=== PATIENT | male | born 1930 | race Caucasian/White ===

== ENCOUNTER 2021-01-27 13:44 | Observation (INO) | payer MEDICARE ==
[~2021-01-27] VITALS: Ht 170.2 cm; Wt 53.0 kg
[~2021-01-27 13:44] MED LIST: CIPRO XR500 MG PO; GLYBURIDE2.5 MG PO; METFORMIN1000 MG PO; MILK OF MAG30 ML/UDC PO; NO HOME MEDS
--- NOTE | 2021-01-27 13:44 | NUR ---
PREHOSPITAL ACCUCHECK 398
--- NOTE | 2021-01-27 13:44 | NUR ---
TO ROOM VIA STRETCHER WITH EMS IN STABLE CONDITION, ALERT, ORIENTED TO PERSON ONLY
[2021-01-27 14:24] LABS: HEMATOCRIT 40.2 % (39.0-50.0); HEMOGLOBIN 12.9 g/dl (14.0-18.0); IMMATURE GRANULOCYTES 1.1 % (0.0-5.0); MEAN CELL VOLUME 94.8 fL CALC (80.0-100.0); MEAN CORPUSCULAR HGB 30.4 pG CALC (26.0-32.0); MEAN CORPUSCULAR HGB CONC 32.1 g/dL CAL (32.0-36.0); NEUT# 6.43 thou/uL (1.82-7.42); RED BLOOD COUNT 4.24 mill/uL (4.70-6.10); RED CELL DISTRI WIDTH 12.3 % (11.5-15.5)
[2021-01-27 14:37] LABS: ALBUMIN 4.3 g/dL (3.2-5.0); ALKALINE PHOSPHATASE 82 u/l (38-126); CARBON DIOXIDE 22 mmol/l (22-30); CREATININE 1.4 mg/dL (0.7-1.3); ETHYL ALCOHOL 0 mg/dl (0-30); GFR 48 ML/MIN (>=60 (CALC)); GFR FOR AFR.AMER. 58 ML/MIN (>=60 (CALC)); LIPASE 515 u/l (23-300); MAGNESIUM 2.3 mg/dL (1.6-2.3); POTASSIUM 4.3 mmol/l (3.5-5.1); SGOT/AST 21 u/l (19-48)
[2021-01-27 14:38] LABS: ACT PARTIAL THROMBO TIME 18.7 SECONDS (20.0-32.5); PROTHROMBIN TIME 10.6 SECONDS (9.0-12.5)
[2021-01-27 14:46] LABS: ANION GAP 18 (6-22 (CALC)); BILIRUBIN, TOTAL 0.5 mg/dL (0.0-1.4); BUN 42 mg/dL (8-23); BUN/CREATININE RATIO 30 (12-20 (CALC)); CHLORIDE 111 mmol/l (95-108); SODIUM 147 mmol/l (137-146)
[2021-01-27 14:51] LABS: URINE BILIRUBIN - DIPSTICK NEGATIVE (NEGATIVE); URINE BLOOD DIPSTICK TRACE-INTACT (NEGATIVE); URINE COLOR YELLOW; URINE GLUCOSE - DIPSTICK >=1000 mg/dL (NEGATIVE); URINE KETONE 15 mg/dL (NEGATIVE); URINE LEUK ESTERASE NEGATIVE (NEGATIVE); URINE PROTEIN - DIPSTICK TRACE mg/dL (NEG-TRACE); URINE SPECIFIC GRAVITY 1.025; URINE UROBILINOGEN - DIPSTICK 0.2 E.U./dL (0.2)
[2021-01-27 14:52] LABS: URINE NITRITE - DIPSTICK NEGATIVE (Negative)
[2021-01-27 15:07] LABS: TSH, 3RD GENERATION 1.94 uIU/mL (0.47 - 4.68)
--- NOTE | 2021-01-27 15:24 | NUR ---
PT RETURNED TO ROOM [address] VIA STRETCHER IN STABLE CONDITION. ADVISED OF WAIT TIME FOR TEST RESULTS. EKG OBTAINED ORDERED.
--- NOTE | 2021-01-27 15:37 | NUR ---
MD AT BEDSIDE DISCUSSING POC FOR ADMISSION TO MONITOR OVERNIGHT. CAREGIVER AT BEDSIDE.
--- NOTE | 2021-01-27 16:45 | NUR ---
PO FLUIDS TAKEN WITHOUT DIFFICULTY. IV SITE HEALTHY. CAREGIVER/PT AWARE OF PENDING ADMIT.
--- NOTE | 2021-01-27 16:59 | NUR ---
REPORT RECEIVED FROM MAUREEN ZABALA
--- NOTE | 2021-01-27 17:15 | NUR ---
PT TO MEDSURG VIA STRETCHER IN STABLE CONDITION. IV SITE HEALHTY. REPORT PROVIDED TO MAUREEN EARL.
--- NOTE | 2021-01-27 17:19 | NUR ---
PT ARRIVED TO MED/SURG ROOM 270 IN STABLE CONDITION VIA STRETCHER ACCOMPANIED BY MAUREEN ZABALA;PT ASSISTED TO BEDSIDE WITH X2 ASSIST;PT ALERT TO PERSON ONLY, FREQUENT RE-ORIENTING REQUIRED;PT ALSO NOTED TO BE VERY POOR HISTORIAN AND [place]ICKAPOO OF [place];ROOM AND CALL LIGHT SYSTEM EDUCATED;PER VJRN PT CAREGIVER CALLED EMS DUE TO PT ACTING "OFF" AND BEING UNABLE TO STAND;WT AND VS OBTAINED BY KENY GLOVER;ASSESSMENT COMPLETED;PT DENIES ANY CURRENT PAIN OR DISCOMFORTS,PAIN SCALE AND REPORTING EDUCATED;RESPIRATIONS EVEN AND UNLABORED ON RA,CLEAR LUNG SOUNDS;ABDOMEN SOFT ON PALPATION AND ACTIVE IN ALL 4 QUADRANTS, LAST BM UNKNOWN;WEAK PEDAL PULSES;SKIN INTACT;TELE MONITORING IN PLACE;EMS #2OG TO LAC FLUSHED AND PATENT,NS STARTED @ 100ML/HR;ACCUCHECK 334, PT COVERED WITH SLIDING SCALE INSULIN PER ORDER;FALL AND ALLERGY BAND APPLIED TO RIGHT ARM;MEAL TRAY PROVIDED;PT DENIES ANY ADDITIONAL NEEDS AND IS ENCOURAGED TO CALL FOR ASSISTANCE IF NEEDED;FALL PRECAUTIONS IN PLACE WITH BED IN THE LOWEST POSITION AND BED ALARM ON FOR SAFETY;CALL LIGHT IN REACH;WILL CONTINUE TO MONITOR
[2021-01-27 17:27] VITALS: BP 161/74
[2021-01-27 18:42] VITALS: BP 136/64
--- NOTE | 2021-01-27 21:30 | NUR ---
RECEIVED PT FROM DAY SHIFT NURSE. PT ORIENTED TO PERSON, ALERT AND AWAKE, REFUSED PAIN AT THIS TIME, ORIENTED ABOUT SAFETY PRECAUTIONS, FALLS PRECAUTIOSN ANS PLAN OF CARE.
[2021-01-27 23:41] VITALS: BP 124/62
--- NOTE | 2021-01-28 00:10 | NUR ---
HOURLY ROUNDING. PT OBSERVED CALM AND SLEEP. VITAL ARE STABLE. NOTIFIED CONTACT EMERGENCY ([facility]) ABOUT UP DATES BY PHONE. RE-EDUCATED PT TO FALLS AND SAFETY PRECAUTIONS.
[2021-01-28 04:00] VITALS: BP 116/67
--- NOTE | 2021-01-28 04:16 | NUR ---
HOURLY ROUNDING. PT OBSERVED SLEEP AND CALM. VITALS ARE STABLE. RE-EDUCATED ABOUT FALLS AND SAFETY PRECAUTIONS.
[2021-01-28 06:45] LABS: ANION GAP 10 (6-22 (CALC)); BUN/CREATININE RATIO 30 (12-20 (CALC)); CARBON DIOXIDE 26 mmol/l (22-30); CHLORIDE 108 mmol/l (95-108); CREATININE 0.6 mg/dL (0.7-1.3); GFR > 60 ML/MIN (>=60 (CALC)); GFR FOR AFR.AMER. > 60 ML/MIN (>=60 (CALC)); MAGNESIUM 1.9 mg/dL (1.6-2.3); POTASSIUM 3.9 mmol/l (3.5-5.1); SODIUM 140 mmol/l (137-146)
[2021-01-28 07:07] LABS: HEMATOCRIT 36.5 % (39.0-50.0); HEMOGLOBIN 11.5 g/dl (14.0-18.0); MEAN CELL VOLUME 97.9 fL CALC (80.0-100.0); MEAN CORPUSCULAR HGB 30.8 pG CALC (26.0-32.0); MEAN CORPUSCULAR HGB CONC 31.5 g/dL CAL (32.0-36.0); RED BLOOD COUNT 3.73 mill/uL (4.70-6.10); RED CELL DISTRI WIDTH 12.4 % (11.5-15.5)
--- NOTE | 2021-01-28 07:10 | NUR ---
REPORT RECEIVED FROM MAUREEN MATHIS
[2021-01-28 07:12] LABS: BUN 18 mg/dL (8-23)
[2021-01-28 07:29] LABS: CHOLESTEROL HDL RATIO 6.4 (<4.4 (CALC))
--- NOTE | 2021-01-28 07:40 | NUR ---
PT RESTING IN SEMI FOWLERS POSITION,A&O TO PERSON AND PLACE;IT ALSO SHOULD BE NOTED THAT THE PT IS VERY HARD OF HEARING;VS OBTAINED AND ASSESSMENT;PT DENIES ANY CURRENT PAIN OR DISCOMFORTS,PAIN SCALE AND REPORTING EDUCATED;RESPIRATIONS EVEN AND UNLABORED ON RA,CLEAR LUNG SOUNDS;ABDOMEN SOFT ON PALPATION AND ACTIVE IN ALL 4 QUADRANTS;WEAK PEDAL PULSES;SKIN INTACT;TELE MONITORING IN PLACE;EMS #20G TO LAC INFUSING NS @ 100ML/HR,SITE APPEARS HEALTHY;ACCUCHECK 199, PT COVERED WITH SLIDING SCALE INSULIN PER ORDER;PT DENIES ANY ADDITIONAL NEEDS AND IS ENCOURAGED TO CALL FOR ASSISTANCE IF NEEDED;FALL PRECAUTIONS IN PLACE WITH BED IN THE LOWEST POSITION AND BED ALARM ON FOR SAFETY;CALL LIGHT IN REACH;WILL CONTINUE TO MONITOR
[2021-01-28 07:41] VITALS: BP 119/61
--- NOTE | 2021-01-28 09:26 | NUR ---
AT BEDSIDE DISCUSSING POC WITH PT.
[2021-01-28 10:58] VITALS: BP 120/56
--- NOTE | 2021-01-28 11:35 | NUR ---
PT RESTING IN SEMI FOWLERS POSITION WATCHING TV;RESPIRATIONS EVEN AND UNLABORED ON RA;PT DENIES ANY CURRENT PAIN OR DISCOMFORTS;TELE MONITORING IN PLACE;IV SITE PATENT INFUSING NS WITH EASE PER ORDER;ACCUCHECK 238, PT COVERED WITH SLIDING SCALE INSULIN PER ORDER;PT DENIES ANY ADDITIONAL NEEDS AND IS ENCOURAGED TO CALL FOR ASSISTANCE IF NEEDED;FALL PRECAUTIONS REMAIN IN PLACE WITH BED IN THE LOWEST POSITION AND BED ALARM ON FOR SAFETY;CALL LIGHT IN REACH;WILL CONTINUE TO MONITOR
--- NOTE | 2021-01-28 11:37 | NUR ---
PHYSICAL THERAPY AT BEDSIDE WORKING WITH PT.
--- NOTE | 2021-01-28 13:43 | NUR ---
PT REMOVED IV SITE WITH CATHETER INTACT. NEW #22G STARTED TO ALEJANDRA BY MAUREEN PATEL.PT TOLERATED WELL.
[2021-01-28 15:22] VITALS: BP 113/56
--- NOTE | 2021-01-28 15:35 | NUR ---
PT AGITATED, ATTEMPTING TO GET OUT OF BED.UNCOOPERATIVE.VISUAL TREMORS ALSO NOTED. PT ASSISTED TO WC AND BROUGHT TO NURSES STATION FOR BETTER OBSERVATION; NOTIFIED OF INCREASED AGITATION,AWAITING NEW ORDERS;WRITTER TO REMAIN WITH PT AT THIS TIME;TELE MONITORING IN PLACE;IV SITE PATENT;ALL SAFETY PRECAUTIONS REMAIN IN PLACE;WILL CONTINUE TO MONITOR
--- NOTE | 2021-01-28 16:25 | NUR ---
PT MEDICATED WITH 10MG IM INJECTION TO RIGHT THIGH OF ZYPREXA BY MAUREEN PATEL PER ORDERS.WILL CONTINUE TO MONITOR
[2021-01-28 18:30] VITALS: BP 129/65
--- NOTE | 2021-01-28 19:00 | NUR ---
PT RESTING IN SEMI FOWLERS POSITION WITH WRITTER AT BEDSIDE. ATTEMPTING TO HIT/KICK WRITTER AND UNCOOPERATIVE WITH STAFF MEMBERS.ATTEMPTING TO GET OUT OF BED, PULL IV OUT AND YELL AT STAFF.MULTIPLE ENVIORMENTAL CHANGES MADE TO DISTRACT PATIENT;CALL PLACED TO BY MAUREEN PATEL AND ORDER FOR SOFT WRIST RESTRAINTS OBTAINED.WRIST RESTRAINTS APPLIED; SITTER TO REMAIN AT BEDSIDE.WILL CONTINUE TO MONITOR
--- NOTE | 2021-01-28 19:08 | NUR ---
CALL PLACED TO SON. VOICEMAIL LEFT AT THIS TIME,AWAITING CALL BACK.
--- NOTE | 2021-01-28 21:00 | NUR ---
PATIENT IS AWAKE IN BED ATTEMPTING TO GET OUT OF B/L SOFT RESTRAINTS TO WRISTS. CIRCULATION CHECKED AND GOOD. SON RETURNED CALL TO HOSPITAL AT 1945 AND WAS INFORMED THAT PATIENT IS NOW IN SOFT RESTRAINTS FOR SAFETY. ASSESSMENT COMPLETED AND CHARTED. SITTER AT BEDSIDE. BED ALARM ON/ACTIVATED.
[2021-01-28 23:21] VITALS: BP 129/68
--- NOTE | 2021-01-29 03:20 | NUR ---
PATIENT STILL AWAKE TRYING TO GET OOB, ASKING FOR A KNIFE, KICKING AT SHEARING SUPERVISOR DURING CARES. BED IN LOW POSITION. CALL LIGHT WITHIN REACH. BED ALARM ON/ACTIVATED, SOFT RESTRAINTS TO B/L WRISTS. CIRCULATIONS GOOD. SITTER AT BEDSIDE.
[2021-01-29 04:00] VITALS: BP 136/56
--- NOTE | 2021-01-29 05:01 | NUR ---
PATIENT CONTINUES TO BE COMBATIVE. PULLED OFF TELEMETRY. THIS NURSE ASSISTED ANIMAL ATTENDANT X2 WITH PATIENT REPOSITION, DIAPER CHANGE, BED LINEN CHANGE AND REAPPLICATION OF TELEMETRY. PATIENT TRIED TO HIT AND BITE WHILE DOING CARE. SITTER AT BEDSIDE. BED IN LOW POSITION, CALL LIGHT WITHIN REACH, BED ALARM ON/ACTIVATED.
[2021-01-29 05:13] LABS: HEMATOCRIT 36.7 % (39.0-50.0); HEMOGLOBIN 11.7 g/dl (14.0-18.0); MEAN CELL VOLUME 95.8 fL CALC (80.0-100.0); MEAN CORPUSCULAR HGB 30.5 pG CALC (26.0-32.0); MEAN CORPUSCULAR HGB CONC 31.9 g/dL CAL (32.0-36.0); RED BLOOD COUNT 3.83 mill/uL (4.70-6.10); RED CELL DISTRI WIDTH 12.1 % (11.5-15.5)
[2021-01-29 05:33] LABS: BUN 35 mg/dL (8-23); BUN/CREATININE RATIO 33 (12-20 (CALC)); CHLORIDE 112 mmol/l (95-108); GFR > 60 ML/MIN (>=60 (CALC)); GFR FOR AFR.AMER. > 60 ML/MIN (>=60 (CALC)); POTASSIUM 3.9 mmol/l (3.5-5.1); SODIUM 142 mmol/l (137-146)
[2021-01-29 05:37] LABS: ANION GAP 14 (6-22 (CALC)); CARBON DIOXIDE 20 mmol/l (22-30)
--- NOTE | 2021-01-29 07:05 | NUR ---
REPORT RECEIVED FROM MAUREEN WINSLOW
[2021-01-29 08:34] VITALS: BP 132/56
--- NOTE | 2021-01-29 08:35 | NUR ---
PT APPEARS TO BE SLEEPING IN SUPINE POSITION,WAKES TO VERBAL STIMULI BUT REMAINS CONFUSED;VS OBTAINED AND ASSESSMENT COMPLETED;PT DENIES ANY CURRENT PAIN OR DISCOMFORTS;RESPIRATIONS EVEN AND UNLABORED ON RA,CLEAR LUNG SOUNDS;ABDOMEN SOFT ON PALPATION AND ACTIVE IN ALL 4 QUADRANTS;STRONG PEDAL PULSES;SKIN INTACT;#22G TO SIENNA INFUSING NS @ 100ML/HR,SITE APPEARS HEALTHY;TELE MONITORING IN PLACE;SOFT BILATERAL WRIST RESTRAINTS IN PLACE. GOOD CAP REFILL NOTED AND CIRCULATION;ACCUCHECK 155, PT COVERED WITH SLIDING SCALE INSULIN PER ORDER;ALL SAFETY PRECAUTIONS REMAIN IN PLACE WITH BED IN THE LOWEST POSITION,BED ALARM ON FOR SAFETY, AND SITTER AT BEDSIDE;CALL LIGHT IN REACH;WILL CONTINUE TO MONITOR
--- NOTE | 2021-01-29 09:37 | NUR ---
AT BEDSIDE DISCUSSING POC WITH PT.
[2021-01-29 10:53] VITALS: BP 113/50
--- NOTE | 2021-01-29 11:10 | NUR ---
PT APPEARS TO BE SLEEPING IN SUPINE POSITION;RESPIRATIONS EVEN AND UNLABORED ON RA;NO S/S OF DISTRESS NOTED;TELE MONITORING IN PLACE;SOFT WRIST RESTRAINTS REMAIN PATENT WITH GOOD CAP REFILL NOTED;#22G TO SIENNA INFUSING NS @ 100ML/HR;ACCUCHECK 136, NO COVERAGE NEEDED;ALL SAFETY PRECAUTIONS IN PLACE WITH BED IN THE LOWEST POSITION,BED ALARM ON FOR SAFETY, AND SITTER AT BEDSIDE;CALL LIGHT IN REACH;WILL CONTINUE TO MONITOR
--- NOTE | 2021-01-29 13:45 | NUR ---
PT COOPERATIVE WITH STAFF MEMBERS, REMAINS DROWSY AND CONFUSED BUT FOLLOWS COMMANDS APPROPRIATELY;BILATERAL SOFT WRIST RESTRAINTS REMOVED AT THIS TIME.ALL SAFETY PRECAUTIONS REMAIN IN PLACE INCLUDING BED IN THE LOWEST POSITION AND SITTER AT BEDSIDE;CALL LIGHT IN REACH;WILL CONTINUE TO MONITOR
--- NOTE | 2021-01-29 13:45 | NUR ---
PT VOMITED 100CC OF BROWN/CLEAR FLUID;CALL PLACED TO AND NEW ORDERS FOR PRN ZOFRAN AND STAT EKG OBTAINED;WILL CONTINUE TO MONITOR
--- NOTE | 2021-01-29 14:11 | NUR ---
RT AT BEDSIDE OBTAINING EKG.
--- NOTE | 2021-01-29 14:26 | NUR ---
PT OOB RESTING IN RECLINER WITH SITTER AT BEDSIDE;RESPIRATIONS EVEN AND UNLABORED ON RA;PT DENIES ANY CURRENT PAIN;PT MEDICATED WITH PRN ZOFRAN 4MG IVP AT THIS TIME FOR NAUSEA;TELE MONITORING IN PLACE;IV SITE PATENT;FALL PRECAUTIONS IN PLACE WITH CALL LIGHT IN REACH;WILL CONTINUE TO MONITOR
[2021-01-29 15:04] VITALS: BP 114/54
--- NOTE | 2021-01-29 15:30 | NUR ---
PT OOB SLEEPING IN RECLINER;RESPIRATIONS EVEN AND UNLABORED ON RA;NO S/S OF DISTRESS NOTED;TELE MONITORING IN PLACE;IV SITE PATENT INFUSING NS WITH EASE PER ORDER;ALL SAFETY PRECAUTIONS REMAIN IN PLACE WITH SITTER AT BEDSIDE AND CALL LIGHT IN REACH;WILL CONTINUE TO MONITOR
--- NOTE | 2021-01-29 18:45 | NUR ---
HOUSEKEEPING ROOM ATTENDANT AT BEDSIDE OF PT. HE APPEARS CALM AT THIS TIME. I REPLACED DARCIE WHO HAS BEEN SITTING WITH PT. TV ON AND LIGHTS ON LOW. NO S/O DISTRESS. I OFFERED HIM PO FLUIDS/RESPONDED APPROPRIATELY. PT IS TALKING BUT SPEECH IS LOW AND SLIGHTLY GARBLED, DIFFICULT FOR HOUSEKEEPING ROOM ATTENDANT TO UNDERSTAND. NO RESTRAINTS AT THIS TIME. PT IS CALMLY IN BED IN HIGH FOWLERS POSITION. IVF RUNNING TO SITE TO LEFT ARM/APPEARS HEALTHY AT THIS TIME.
[2021-01-29 19:00] VITALS: BP 151/55
--- NOTE | 2021-01-29 20:27 | NUR ---
PATIENT AWAKE AND CONFUSED WITH SITTER AT BEDSIDE. UP TO BSC WITH ASSIST. IVF INFUSING ORDERED. PATIENT PARTIALLY URINATED ON THE FLOOR. ON TELEMETRY. NOT BLATANTLY COMBATIVE AT THIS TIME. ASSESSMENT COMPLETED AND CHARTED. FALL PRECAUTIONS IN PLACE. BED ALARM ACTIVE.
--- NOTE | 2021-01-29 20:30 | NUR ---
PT STARTED TRYING TO CLIMB OUT OF THE BED. I ASSISTED HIM TO THE SIDE OF THE BED TO STAND, HE IS ATTEMPTING TO USE THE URINAL. REFUSES ASSISTANCE SAYING "LET ME DO IT" HE IS VERY WEAK AND UNSTABLE STANDING. WE ATTEMPTED HIM TO BS NEXT TO THE BED WITH 200CC OF DARK YELLOW URINE OUTPUT. PT AGREED TO RETURN TO THE BED WITH LITTLE STANDBY ASSISTANCE. HE REMAINS FAIRLY CALM AT THIS TIME. REFUSES MUCH ASSISTANCE, BUT DID NOT BECOME COMBATIVE AT THIS TIME. BED ALARM ON AND SITTER/CHANGE OVER REMAINING AT BS.
--- NOTE | 2021-01-29 23:36 | NUR ---
Pt was sleeping. Attempts to obtain v/s were made. Scraper Burrer was able to obtain hr, oxygen sat level, resp and temp. Pt appears stable at this time. He would not allow BP assessment at this time. He jerked away and hit at me for attempts of bp assess. and when I attempted to obtain B/P via lower extremety and he began to kick at me. He remains calm with comfort care, drink, positioning and blankets. Becomes agitated with further attempts of care. Will follow-up again for BP assessment attempts.
--- NOTE | 2021-01-30 00:33 | NUR ---
RESTING SIDELYING POSITION. EYES CLOSED. SITTER AT BEDSIDE FOR SAFETY. BED ALARM ON. BED IN LOW POSITION. CALL LIGHT WITHIN REACH.
--- NOTE | 2021-01-30 03:00 | NUR ---
Pt is laying on his side in bed w/covers on, sleeping. Resp even and non-labored. hall monitor is in place. Bed alarm is on. Dye Room Helper sitting at bedside for safety precautions.
[2021-01-30 04:25] VITALS: BP 152/80
--- NOTE | 2021-01-30 04:25 | NUR ---
Labs were drawn and v/s assessed at this time. He tolerated well and was cooperative without issue. Pt remained calm and appears to be returning to sleep.
[2021-01-30 05:29] LABS: HEMATOCRIT 32.5 % (39.0-50.0); HEMOGLOBIN 10.7 g/dl (14.0-18.0); MEAN CELL VOLUME 94.2 fL CALC (80.0-100.0); MEAN CORPUSCULAR HGB CONC 32.9 g/dL CAL (32.0-36.0); RED BLOOD COUNT 3.45 mill/uL (4.70-6.10); RED CELL DISTRI WIDTH 12.1 % (11.5-15.5)
[2021-01-30 05:42] LABS: ANION GAP 7 (6-22 (CALC)); BUN 20 mg/dL (8-23); BUN/CREATININE RATIO 24 (12-20 (CALC)); CARBON DIOXIDE 22 mmol/l (22-30); CHLORIDE 111 mmol/l (95-108); CREATININE 0.9 mg/dL (0.7-1.3); GFR > 60 ML/MIN (>=60 (CALC)); GFR FOR AFR.AMER. > 60 ML/MIN (>=60 (CALC)); POTASSIUM 3.4 mmol/l (3.5-5.1); SODIUM 137 mmol/l (137-146)
[2021-01-30 08:00] VITALS: BP 145/66
--- NOTE | 2021-01-30 08:00 | NUR ---
OUT OF THE BED TO THE BSC WITH 1 ASST. IV INFUSING. NOTED PT [place]AK[place]. REPOSITIOEND TO PLACE AND TIME, SITUATION. PT HAD A LARGE STOOL. BACK TO BED WITH ASST. NO DISTRESS NOTED AT THIS TIME. PT HAS A SITTER AT THE BEDSIDE. REPOSITIOEND FOR COMFORT, SIDE RAILS UP CALL LIGHT IN REACH BED LOCKED IN LOW POSITION, WILL CONTINUE TO MONIOTR THE PATIENT.
--- NOTE | 2021-01-30 10:00 | NUR ---
PT RESTING COMFORTABLE , EYES CLOSED. SITTER AT THE BEDSIDE NO DISTRESS NOTED AT THIS TIME.
[2021-01-30 11:30] VITALS: BP 121/63
--- NOTE | 2021-01-30 12:00 | NUR ---
PT SITTING UP ON THE SIDE OF THE BED EATING LUNCH, NO DISTRESS NOTED AT THIS TIME.
--- NOTE | 2021-01-30 14:29 | NUR ---
PT BACK IN THE BED, RESTING COMFORTABLE . SITTER AT THE BEDSIDE. NO DISTRESS NOTED AT THIS TIME.
[2021-01-30 15:18] VITALS: BP 138/62
--- NOTE | 2021-01-30 16:35 | NUR ---
PT note: Patient is able to get OOB to stand with mod assist of 1. He ambulated about 40 feet with mod assist of 1 with a shuffling gait. He is pleasanlty confused today but does follow instriuctions. He is limited by fatigue and poor balance. Am Pac score on this patient is 12 indicating he would do well to go to [facility]. Our plan is to continue gait training for endurance and right reflexes to improve balance
--- NOTE | 2021-01-30 17:09 | NUR ---
RESTING COMFORTABLE, SITTER AT THE BEDSIDE NO DISTRESS NOTED AT THIS TIME.
[2021-01-30 19:00] VITALS: BP 137/70
[2021-01-30 19:25] VITALS: BP 130/72
[2021-01-31 03:57] VITALS: BP 123/69
--- NOTE | 2021-01-31 04:24 | NUR ---
PATIETNT WAS PLEASENT AND SLEPT FROM 1130PM-0330. PATIENT URINATED X 3 TO BEDSIDE TOILET
[2021-01-31 05:14] LABS: HEMATOCRIT 33.5 % (39.0-50.0); MEAN CELL VOLUME 95.2 fL CALC (80.0-100.0); MEAN CORPUSCULAR HGB 31.3 pG CALC (26.0-32.0); MEAN CORPUSCULAR HGB CONC 32.8 g/dL CAL (32.0-36.0); RED BLOOD COUNT 3.52 mill/uL (4.70-6.10); RED CELL DISTRI WIDTH 12.2 % (11.5-15.5)
[2021-01-31 05:29] LABS: ANION GAP 9 (6-22 (CALC)); BUN 18 mg/dL (8-23); BUN/CREATININE RATIO 19 (12-20 (CALC)); CARBON DIOXIDE 21 mmol/l (22-30); CHLORIDE 112 mmol/l (95-108); CREATININE 0.9 mg/dL (0.7-1.3); GFR > 60 ML/MIN (>=60 (CALC)); GFR FOR AFR.AMER. > 60 ML/MIN (>=60 (CALC)); POTASSIUM 3.6 mmol/l (3.5-5.1); SODIUM 138 mmol/l (137-146)
--- NOTE | 2021-01-31 07:20 | NUR ---
REPORT RECEIVED FROM MAUREEN STAFFORD
[2021-01-31 09:27] VITALS: BP 148/70
--- NOTE | 2021-01-31 09:30 | NUR ---
PT RESTING IN SEMI FOWLERS POSITION,A&0 X2;VS OBTAINED AND ASSESSMENT COMPLETED;PT DENIES ANY CURRENT PAIN OR DISCOMFORTS,PAIN SCALE AND REPORTING EDUCATED;RESPIRATIONS EVEN AND UNLABORED ON RA,CLEAR LUNG SOUNDS;ABDOMEN SOFT ON PALPATION AND ACTIVE IN ALL 4 QUADRANTS;WEAK PEDAL PULSES;SKIN INTACT;TELE MONITORING IN PLACE;#22G TO SIENNA INFUSING NS @ 100ML/HR,SITE APPEARS HEALTHT;ACCUCHECK 139, NO COVERAGE NEEDED;PT DENIES ANY ADDITIONAL NEEDS AND IS ENCOURAGED TO CALL FOR ASSISTANCE IF NEEDED;FALL PRECAUTIONS IN PLACE WITH BED IN THE LOWEST POSITION,BED ALARM ON FOR SAFETY, AND SITTER AT BEDSIDE;CALL LIGHT IN REACH;WILL CONTINUE TO [facility]
--- NOTE | 2021-01-31 09:40 | NUR ---
AT BEDSIDE DISCUSSING POC.
[2021-01-31 10:58] VITALS: BP 151/65
--- NOTE | 2021-01-31 11:30 | NUR ---
PT RESTING IN SEMI FOWLERS POSITION;RESPIRATIONS EVEN AND UNLABORED ON RA;PT DENIES ANY CURRENT PAIN OR DISCOMFORTS;TELE MONITORING IN PLACE;IV SITE PATENT INFUSING NS WITH EASE PER ORDER;ACCUCHECK 184, PT COVERED WITH SLIDING SCALE INSULIN PER ORDER;ALL SAFETY PRECAUTIONS REMAIN IN PLACE WITH BED IN THE LOWEST POSITION AND SITTER AT BEDSIDE;CALL LIGHT IN REACH;WILL CONTINUE TO MONITOR
--- NOTE | 2021-01-31 11:51 | NUR ---
PHYSICAL THERAPY AT BEDSIDE WORKING WITH PT.
--- NOTE | 2021-01-31 13:38 | NUR ---
PHYSICAL THERAPY WORKING WITH PT.
--- NOTE | 2021-01-31 13:47 | NUR ---
PT NOTE Patient seated om commode as entered room, Charisse BUSTILLO was present. Patient agreed to participate in session. Patient hard of hearing. Transfer from commode to bed (Min A), verbal/tactile cues for propper foot work and correct hand placement. Ambulated w/ FWW, x10ft x 2, slight loss of balance noted as gait trained. Stand to sit(independant), cues for proper hand placement as he descends to a seated position. Charisse present as exited room, tray table and call aleman by patient side. [facility] 12
[2021-01-31 14:29] VITALS: BP 147/62
--- NOTE | 2021-01-31 16:05 | NUR ---
PT RESTING IN SEMI FOWLERS POSITION;RESPIRATIONS EVEN AND UNLABORED ON RA;PT DENIES ANY CURRENT PAIN OR DISCOMFORTS;TELE MONITORING IN PLACE;IV SITE PATENT TO SIENNA;ALL SAFETY PRECAUTIONS REMAIN IN PLACE WITH BED IN THE LOWEST POSITION AND SITTER AT BEDSIDE;CALL LIGHT IN REACH;WILL CONTINUE TO MONITOR
[2021-01-31 18:55] VITALS: BP 133/66
--- NOTE | 2021-01-31 19:30 | NUR ---
PT AWAKE WITH TV ON AND SITTER AT BEDSIDE. PT SPOKE, APPEARS PLEASANTLY CONFUSED AT THIS TIME. NO S/O DISTRESS. PT APPEARS CALM ALSO AT THIS TIME.
--- NOTE | 2021-01-31 21:49 | NUR ---
PT MEDICATED ORDERS PROVIDE. HE WANTED TO URINATE, I ASSISTED HIM WITH URINAL IN THE BED, HE REFUSED THIS, INSISTED ON STANDING AT BEDSIDE, USED URINAL WTIH VERY SMALL AMOUNT OF OUTPUT 50CC. HIS DRESSING WRAP WAS FALLING OFF OF HIS ARM AND HE WAS PULLING ON IT. I REMOVED THIS DRESSING AND ATTEMPTING TO REPLACE, HE KEPT TALKING ABOUT NEEDING ALCOHOL FOR HIS IV SITE. WHEN INSPECTED CLOSELY I REALIZED THIS SITE HAD REDNESS, SITE HAS NOT INFILTRATED/BLOOD RETURN AT THIS TIME, BUT IS RED AND VERY TENDER TO TOUCH. I PROVIDED ALCOHOL WIPES, BUT HE INSISTED HE NEEDED ALCOHOL BOTTLES, I ATTEMPTED TO ORIENT HIM AND EVEN ALLOWED HIM TO AMBULATE HALLWAY USING WALKER WITH FLOOR SPACE ALLOCATOR BEHIND HIM FOR SAFETY. HE BEGAN TRYING TO GO INTO OTHER PEOPLES ROOM, BECOMING AGITATED WHEN WE WOULD TRY AND STOP HIM. HE AGREED THEN TO RIDE IN THE WHEELCHAIR ALLOWING US TO BRING HIM BACK TO HIS ROOM. HE AGREED TO GET BACK INTO BED STATING "I WILL JUST LAY HERE FOR A WHILE. PT BACK IN THE BED WITH SITTER AT SIDE. IVF HAVE BEEN STOPPED AND I ATTEMPTED TO REMOVE IV SITE/REFUSED AND HIT AT US AND YELLED WHEN WE ATTEMPTED.
--- NOTE | 2021-01-31 22:45 | NUR ---
GENNY CALLED AND REPORTED THAT THE PT WILL NOT LEAVE HIS IV SITE ALONE, I ATTEMPTED TO REMOVE IT,HE KEPT SWATTING AT MY HAND AND YELLING AT ME, TELLING HIM TO LEAVE IT ALONE. WHILE I WAS IN THE ROOM AND ANJUMTER ALSO ASSISTING THE PT GRABBED THE IV TUBING AND PULLED. I WAS TRYING TO HELP HIM SO THAT HE DID CAUSE FURTHER DAMAGE, BUT HE PULLED UNTIL IT WAS REMOVED. SITE IS REDDENED, CANULA WAS INTACT AT TIME OF REMOVAL. WILL NOTIFY PHYSICIAN. PT CLEANED THE SITE WITH ALCOHOL WIPES THAT WE PROVIDED PER HIS REQUEST, REFUSED ANY ASSISTANCE.
--- NOTE | 2021-01-31 23:51 | NUR ---
PT IS UP AMBULATING THE ROOM, ANJUMTER CALLED FOR ASSISTANCE. UPON ENTERING THE ROOM THE PT WAS ATTEMPTING TO GET OUT OF THE ROOM. I INSTRUCTED HIM TO GO BACK TO THE RECLINER OR THE BED, HE GOT IN MY FACE, POINTING BOTH HANDS AND FINGERS AT ME AND TOLD ME "NO, I AM LEAVING." MACHINE PROGRAMMER AFSHAN ARRIVED AT THE DOOR TO ASSIST. PT SCOLDED HIM FOR BEING IN HIS WAY, TURNING AROUND JERKING AWAY HIS ARM AND SWATTING AT US WHEN WE TRY TO ASSIST HIM TO WALK, GAIT IS VERY WEAK AND UNSTABLE. WE INFORMED HIM OF SAFETY ISSUES AND HE SAID "I DON'T CARE, DON'T TOUCH ME," HITTING AT OUR HANDS. SITTER REPORTS THAT HE WAS TRYING TO HIT HER AND "BOXED" AT HER WITH HIS FISTS PRIOR TO US ENTERING THE ROOM, CAUSING HER TO CALL FOR ASSISTANCE. PT EVENTUALLY AGREED TO GET BACK IN THE BED STATING "I AM GOING TO HAVE TO LAY DOWN." HE IS TUCKED INTO BED WITH BLANKET, CALL LIGHT, BED ALARM AND SITTER AT SIDE. WE OFFERED PUDDING, CRACKERS OR PEANUT BUTTER, PLACING THESE ITEMS WITH REACH AT BEDSIDE, THE PT SMELLED THEM AND PLACED THEM BACK ON THE BST STATING, "NO I DON'T WANT THAT." WATER PROVIDED, REFUSED THIS ALSO.
--- NOTE | 2021-02-01 04:25 | NUR ---
PT IS SLEEPING SOUNDLY, NO S/O DISTRESS, RESP EVEN AND NON-LABORED, SITTER AT BEDSIDE AND BED ALARM IS ON.
[2021-02-01 04:48] VITALS: BP 154/61
--- NOTE | 2021-02-01 05:20 | NUR ---
NEW IV SITE ACCESSED AT THIS TIME. PT TOLERATED WELL, DID NOT FIGHT IN ANYWAY OR BECOME COMBATIVE. SITTER IS AT BEDSIDE.
[2021-02-01 06:40] LABS: HEMATOCRIT 35.9 % (39.0-50.0); HEMOGLOBIN 12.1 g/dl (14.0-18.0); MEAN CELL VOLUME 93.7 fL CALC (80.0-100.0); MEAN CORPUSCULAR HGB 31.6 pG CALC (26.0-32.0); MEAN CORPUSCULAR HGB CONC 33.7 g/dL CAL (32.0-36.0); RED BLOOD COUNT 3.83 mill/uL (4.70-6.10); RED CELL DISTRI WIDTH 12.3 % (11.5-15.5)
--- NOTE | 2021-02-01 07:20 | NUR ---
REPORT RECEIVED FROM MAUREEN RYAN
[2021-02-01 07:32] LABS: ANION GAP 8 (6-22 (CALC)); BUN 13 mg/dL (8-23); BUN/CREATININE RATIO 15 (12-20 (CALC)); CARBON DIOXIDE 25 mmol/l (22-30); CHLORIDE 109 mmol/l (95-108); CREATININE 0.9 mg/dL (0.7-1.3); GFR > 60 ML/MIN (>=60 (CALC)); GFR FOR AFR.AMER. > 60 ML/MIN (>=60 (CALC)); MAGNESIUM 1.9 mg/dL (1.6-2.3); POTASSIUM 3.6 mmol/l (3.5-5.1); SODIUM 138 mmol/l (137-146)
--- NOTE | 2021-02-01 08:00 | NUR ---
PT RESTING IN SEMI FOWLERS POSITION WITH SITTER AT BEDSIDE, A&O TO PERSON ONLY;ASSESSMENT COMPLETED;RESPIRATIONS EVEN AND UNLABORED ON RA,CLEAR LUNG SOUNDS;ABDOMEN SOFT ON PALPATION AND ACTIVE IN ALL 4 QUADRANTS;WEAK PEDAL PULSES;SKIN INTACT;TELE MONITORING IN PLACE;#22G TO RFA INFUSING NS @ 100ML/HR,SITE APPEARS HEALTHY;ACCUCHECK 182, PT COVERED WITH SLIDING SCALE INSULIN PER ORDER;ALL SAFETY PRECAUTIONS REMAIN IN PLACE WITH BED IN THE LOWEST POSITION AND CALL LIGHT IN REACH;WILL CONTINUE TO MONITOR
[2021-02-01 08:52] VITALS: BP 155/80
--- NOTE | 2021-02-01 09:55 | NUR ---
AT BEDSIDE DISCUSSING POC.
--- NOTE | 2021-02-01 11:25 | NUR ---
PT RESTING IN SEMI FOWLERS POSITION WITH SITTER AT BEDSIDE;RESPIRATIONS EVEN AND UNLABORED ON RA;PT DENIES ANY CURRENT PAIN OR NEEDS;IV SITE PATENT INFUSING NS @ 20ML/HR;ACCUCHECK 263, PT COVERED WITH SLIDING SCALE INSULIN;PT DENIES ANY ADDITIONAL NEEDS;ENCOURAGED TO CALL FOR ASSISTANCE IF NEEDED;CALL LIGHT IN REACH;WILL CONTINUE TO MONITOR
--- NOTE | 2021-02-01 13:44 | NUR ---
Physical Therapy Visit Susanna was seen and treated today. Patient identified by full name and date o . Physical Therapy Management 1. AROME of the head and neck x 10 repetitions 2. AROME of the UE x 10 repetitions 3. AROME of the LE x 10 repetitions 4. Sit to stand x 3 repetitions 5. Standing balance/tolerance 3-5 minutes 6. Gait training with rolling walker and minimal assistance x 20 feet x 3 rounds. 7. Review of fall precautions, patient verbalized understanding. Patient was able to perform all exercises with minimal fatigue. Unsteadiness observed while patient was attempting to sit and stand and during walking.
--- NOTE | 2021-02-01 15:15 | NUR ---
final blood cx results show s epi in 1 of 4, reported to shawn. per shawn, likely a contaminant, no new orders warranted.
[2021-02-01 15:22] VITALS: BP 130/67
--- NOTE | 2021-02-01 15:35 | NUR ---
PT RESTING IN SEMI FOWLERS POSITION WITH SITTER AT BEDSIDE;RESPIRATIONS EVEN AND UNLABORED ON RA;PT DENIES ANY CURRENT PAIN OR DISCOMFORTS;IV SITE PATENT INFUSING NS WITH EASE PER ORDER;ALL SAFETY PRECAUTIONS REMAIN IN PLACE WITH BED IN THE LOWEST POSITION AND CALL LIGHT IN REACH;WILL CONTINUE TO MONITOR
[2021-02-01 18:48] VITALS: BP 145/67
--- NOTE | 2021-02-01 19:36 | NUR ---
REPORT RECIVED FROM DAY SHIFT NURSE. AT THIS TIME PT IS RESTING QUIETLY IN BED. SITTER AT BEDSIDE, NO S/S OF AGITATION OR COMBATIVE BEHAVIORS NOTED. BREATHING EVEN AND UNLABORED, LUNGS CTA, ON RA. BS ACTIVE X 4 QUADS. NO COMPLAINTS VOICED AT THIS TIME. IV REMAINS TO RFA #22 RUNNING NORMAL SALINE @ 20ML/HR. DOCUMENTATION COMPLETED, PLEASE SEE ASSESSMENTS. SAFETY PRECAUTIONS REMIAIN IN PLACE, BED IN LOWEST POSITION, BED ALARM ON, AND CALL LIGHT WITHIN REACH. WILL MONITOR
--- NOTE | 2021-02-01 20:38 | NUR ---
PT BS CHECKED, 273. PT GIVEN 5U OF INSULIN SQ. PT TOLEATED WELL. NO S/S OF AGITATION OR COMBATIVENESS AT THIS TIME. WILL MONITOR
--- NOTE | 2021-02-01 23:45 | NUR ---
PT AWAKE AT THIS TIME. NO S/S OF AGITATION OR COMBATIVENESS. PT USED TO URINAL TO VOID, OUTPUT RECORDED. NO COMPLAINTS VOICED. SAFETY PRECAUTIONS REMAIN IN PLACE, BED ALARM ON, SITTER AT BEDSIDE, AND CALL LIGHT WITHIN REACH. WILL MONITOR
[2021-02-02] VITALS: BP 133/58
--- NOTE | 2021-02-02 03:57 | NUR ---
PT CONTINUES TO REST IN BED WITH HIS EYES CLOSED. NO S/S OF BEHAVIORS OR AGITATION. PT HAS BEEN VERY CALM TONIGHT. SLIGHT DRY COUGH NOTED WHEN SLEEPING, DOES NOT SEEM TO BOTHER PT, HOB ELEVATED. LUNGS CTA. NO COMPLAINTS VOICED. DNIES PAIN. SAFETY PRECAUTIONS REMAIN IN PLACE, BED IN LOWEST POSITION, CALL LIGHT WITHIN REACH, BED ALARM ACTIVE, AND SITTER REMAINS AT BEDSIDE. WILL MONITOR
[2021-02-02 04:25] VITALS: BP 123/56
--- NOTE | 2021-02-02 05:30 | NUR ---
PT UP TO TOILET, DIDN'T QUITE MAKE IT AND URINATED A LITTLER IN HIS BED. BED AND PT CLEANED UP FOLLOWING TOILET USE. 200ML OUTOUT OF URINE, DOCUMENTED. TOTAL LINEN CHANGE COMPLETED. PT IS NOW BACK IN BED RESTING QUIETLY. C/O PAIN TO SIENNA FROM PREVIOUS IV SITE, SLIGHTLY SWOLLEN AND REDDENED, ICE PACK APPLIED FOR PT COMFORT. SAFETY PRECUATIONS REMAIN IN PLACE, CALL LIGHT WITHIN REACH, BED IN LOW POSITION, SITTER AT BEDSIDE. REPORT GIVEN TO CONNOR VALENCIA RN ON PT. CONNOR WILL BE TAKING OVER PT CARE IN APPROXIMATLY 30MINS. WILL MONITOR
[2021-02-02 05:50] LABS: HEMATOCRIT 31.8 % (39.0-50.0); HEMOGLOBIN 10.7 g/dl (14.0-18.0); MEAN CELL VOLUME 92.4 fL CALC (80.0-100.0); MEAN CORPUSCULAR HGB 31.1 pG CALC (26.0-32.0); MEAN CORPUSCULAR HGB CONC 33.6 g/dL CAL (32.0-36.0); RED BLOOD COUNT 3.44 mill/uL (4.70-6.10); RED CELL DISTRI WIDTH 12.2 % (11.5-15.5)
[2021-02-02 06:04] LABS: ANION GAP 12 (6-22 (CALC)); BUN 18 mg/dL (8-23); BUN/CREATININE RATIO 20 (12-20 (CALC)); CARBON DIOXIDE 21 mmol/l (22-30); CHLORIDE 105 mmol/l (95-108); CREATININE 0.9 mg/dL (0.7-1.3); GFR > 60 ML/MIN (>=60 (CALC)); GFR FOR AFR.AMER. > 60 ML/MIN (>=60 (CALC)); POTASSIUM 3.6 mmol/l (3.5-5.1); SODIUM 135 mmol/l (137-146)
--- NOTE | 2021-02-02 07:00 | NUR ---
PT REPORT RECEIVED FROM NIGHT NURSE
--- NOTE | 2021-02-02 08:00 | NUR ---
PT WAS FOUND SLEEPING IN BED WITH SITTER AT BEDSIDE;PT AROUSED TO VERBAL STIMULI;PT IS ALERT TO PERSON AND PLACE, BUT DOES SUFFER CONFUSION;VS AND ASSESSMENT WERE COMPLETED;HEART SOUNDS ARE REGULAR IN RATE AND RHYTHM;TELE IS IN PLACE;LUNG SOUNDS ARE CLEAR;RESPIRATIONS ARE EVEN AND UNLABORED ON RA;ABDOMEN IS SOFT WITH ACTIVE BOWEL SOUNDS IN ALL QUADRANTS;#22G IV IN RFA IS RUNNING NS@20ML/HR;IV SITE IS PATENT AND APPEARS FREE OF COMPLICATIONS AT THIS TIME;PT HAS BRIONNA HOSE ON;SAFETY PRECAUTIONS IN PLACE;CALL LIGHT WITHIN REACH;PT ENCOURAGED TO CALL WITH ANY NEEDS OR CONCERNS;BED IN LOWEST POSITION;BED ALARM ON WITH SITTER AT BEDSIDE;WILL CONTINUE TO MONITOR.
--- NOTE | 2021-02-02 09:00 | NUR ---
AND BRUCE MICHELE AT BEDSIDE DISCUSSING POC WITH PT
[2021-02-02 09:30] VITALS: BP 134/77
--- NOTE | 2021-02-02 12:00 | NUR ---
PT IS CURRENTLY RESTING IN BED EATING LUNCH WITH SON AT BEDSIDE;PT IS BEING PREPARED FOR DISCHARGE LATER TODAY;SAFETY PRECAUTIONS IN PLACE;BED ALARM ON;CALL LIGHT WITHIN REACH;BED IN LOWEST POSITION;WILL CONTINUE TO MONITOR.
[2021-02-02] MEDS ORDERED: GLYBURIDE2.5 M1 PO (12:32)
[2021-02-02] MEDS ORDERED: METFORMIN500 M2 PO (12:33)
[2021-02-02] MEDS ORDERED: SEROQUEL25 MG PO (12:34)
--- NOTE | 2021-02-02 13:56 | NUR ---
Pt seen for treatment this pm. His son was at bed side. Pt answered questions appropriately for name and birthdate. Pt was able to roll side to side indep and sat over bed indep. Transfers bed to and from chair with supervision. Gait in room x 60 x 2 with supervision. Pt was able to stand feet together with eyes open x 30 sec and eyes close x 20 sec. Balance decrease slightly with side stepping/backward walking. Sitting marching performed. Pt [facility]. Pt left in bedside chair with call aleman in reach tray in front of him and was instructed not to get up without assist.
--- NOTE | 2021-02-02 14:19 | NUR ---
Discharge instructions given. Patient verbalizes understanding of same. Discharged in stable condition via Wheelchair to Home with family. All belongings sent with pt. DISCHARGE PACKET WAS GIVEN TO PT WITH SON;DISCHARGE INSTRUCTIONS AND MEDICATIONS WERE EXPLAINED TO BOTH PT AND SON DUE TO PT CONFUSION AND HARD OF HEARING;PT AND SON EXPRESSED UNDERSTANDING AND HAD NO FURTHER QUESTIONS FOR ME;SIGNATURE WAS OBTAINED;IV WAS REMOVED WITH NO COMPLICATIONS AND CATHETER INTACT; PT WAS TRANSPORTED TO [facility] VIA IN STABLE CONDITION ACCOMPANIED BY STAFF;ALL PT BELONGINGS WERE SENT WITH PT;PT WILL BE WITH [facility]ERAP[facility];PT WILL BE TRANSPORTED HOME WITH FAMILY
== END 2021-02-02 14:19 ==
LOC: ED 13:44 → MS2 15:47
PROVIDERS: Nurse Practitioner; ADMIT Hospitalist; ATTEND Hospitalist
DX: G93.41 Metabolic encephalopathy (principal); N17.9 Acute kidney failure, unspecified; E86.0 Dehydration; E11.65 Type 2 diabetes mellitus with hyperglycemia; F03.91 Unspecified dementia, unspecified severity, with behavioral disturbance; E87.6 Hypokalemia; T50.916A Underdosing of multiple unspecified drugs, medicaments and biological substances, initial encounter; Z91.128 Patient's intentional underdosing of medication regimen for other reason; Z78.1 Physical restraint status; Z79.84 Long term (current) use of oral hypoglycemic drugs; Z86.73 Personal history of transient ischemic attack (TIA), and cerebral infarction without residual deficits; Z60.2 Problems related to living alone; Z20.822 Contact with and (suspected) exposure to COVID-19
CPT/HCPCS: G0378; J1650; S0166